=== PATIENT | female | born 1950 | race Caucasian/White ===

== ENCOUNTER → 2024-10-14 10:49 | Outpatient (REF) | payer OTHER, SELFPAY ==
[2024-10-14 12:06] LABS: INR 3.11; PT 32.4 Sec (11.4-14.6)
== END ==
LOC: REG 10:49
PROVIDERS: ATTENDING PHYSICIAN Internal Medicine Cardiovascular Disease
DX: I48.21 Permanent atrial fibrillation (principal)
CPT/HCPCS: 36415; 85610

== ENCOUNTER → 2024-10-21 08:36 | Outpatient (REF) | payer OTHER, SELFPAY ==
[2024-10-21 09:26] LABS: INR 3.07
== END ==
LOC: REG 08:36
PROVIDERS: ATTENDING PHYSICIAN Internal Medicine Cardiovascular Disease; FAMILY PHYSICIAN Student in an Organized Health Care Education/Training Program
DX: I48.21 Permanent atrial fibrillation (principal)
CPT/HCPCS: 36415; 85610

== ENCOUNTER → 2024-10-25 08:13 | Outpatient (REF) | payer OTHER, SELFPAY | LOC: HWRCS 08:13 | PROVIDERS: ATTENDING PHYSICIAN Internal Medicine Cardiovascular Disease; FAMILY PHYSICIAN Student in an Organized Health Care Education/Training Program | DX: I48.21 Permanent atrial fibrillation (principal); Z98.890 Other specified postprocedural states; I50.22 Chronic systolic (congestive) heart failure | CPT/HCPCS: 93306 ==

== ENCOUNTER → 2024-10-28 08:46 | Outpatient (REF) | payer OTHER, SELFPAY ==
[2024-10-28 09:58] LABS: INR 3.74; PT 37.2 Sec (11.4-14.6)
[2024-10-28 10:42] LABS: Blood Urea Nitrogen 44 mg/dl (7-17); Calcium 9.6 mg/dl (8.4-10.2); Carbon Dioxide 30 mmol/L (22-30); Chloride 100 mmol/L (98-107); Glucose 91 mg/dl (70-99); Potassium 4.5 mmol/L (3.5-5.1); Sodium 139 mmol/L (135-145); eGFR 39.48
== END ==
LOC: REG 08:46
PROVIDERS: ATTENDING PHYSICIAN Internal Medicine Cardiovascular Disease; FAMILY PHYSICIAN Student in an Organized Health Care Education/Training Program
DX: I50.32 Chronic diastolic (congestive) heart failure (principal); I48.21 Permanent atrial fibrillation
CPT/HCPCS: 36415; 80048; 85610

== ENCOUNTER → 2024-11-04 08:05 | Outpatient (REF) | payer OTHER, SELFPAY ==
[2024-11-04 09:33] LABS: INR 2.98; PT 31.3 Sec (11.4-14.6)
== END ==
LOC: REG 08:05
PROVIDERS: ATTENDING PHYSICIAN Internal Medicine Cardiovascular Disease; FAMILY PHYSICIAN Student in an Organized Health Care Education/Training Program
DX: I48.21 Permanent atrial fibrillation (principal); Z79.01 Long term (current) use of anticoagulants
CPT/HCPCS: 36415; 85610

== ENCOUNTER → 2024-11-11 08:41 | Outpatient (REF) | payer OTHER, SELFPAY ==
[2024-11-11 09:30] LABS: Blood Urea Nitrogen 61 mg/dl (7-17); Calcium 9.7 mg/dl (8.4-10.2); Carbon Dioxide 31 mmol/L (22-30); Chloride 102 mmol/L (98-107); Glucose 96 mg/dl (70-99); Potassium 4.6 mmol/L (3.5-5.1); Sodium 141 mmol/L (135-145); eGFR 31.27
[2024-11-11 09:39] LABS: INR 1.98; PT 22.9 Sec (11.4-14.6)
== END ==
LOC: REG 08:41
PROVIDERS: ATTENDING PHYSICIAN Internal Medicine Cardiovascular Disease; FAMILY PHYSICIAN Student in an Organized Health Care Education/Training Program
DX: I50.32 Chronic diastolic (congestive) heart failure (principal); I48.21 Permanent atrial fibrillation; Z79.01 Long term (current) use of anticoagulants
CPT/HCPCS: 36415; 80048; 85610

== ENCOUNTER → 2024-11-19 08:24 | Outpatient (REF) | payer OTHER, SELFPAY ==
[2024-11-19 09:25] LABS: INR 2.25
== END ==
LOC: REG 08:24
PROVIDERS: ATTENDING PHYSICIAN Internal Medicine Cardiovascular Disease
DX: I48.21 Permanent atrial fibrillation (principal)
CPT/HCPCS: 36415; 85610

== ENCOUNTER → 2024-11-26 08:34 | Outpatient (REF) | payer OTHER, SELFPAY ==
[2024-11-26 09:28] LABS: INR 1.99; PT 22.7 Sec (11.4-14.6)
== END ==
LOC: REG 08:34
PROVIDERS: ATTENDING PHYSICIAN Internal Medicine Cardiovascular Disease
DX: I48.21 Permanent atrial fibrillation (principal)
CPT/HCPCS: 36415; 85610

== ENCOUNTER → 2024-12-03 10:38 | Outpatient (REF) | payer OTHER, SELFPAY ==
[2024-12-03 12:07] LABS: PT 22.9 Sec (11.4-14.6)
== END ==
LOC: REG 10:38
PROVIDERS: ATTENDING PHYSICIAN Internal Medicine Cardiovascular Disease
DX: I48.21 Permanent atrial fibrillation (principal); I50.32 Chronic diastolic (congestive) heart failure
CPT/HCPCS: 36415; 85610

== ENCOUNTER → 2024-12-30 09:56 | Outpatient (REF) | payer OTHER, SELFPAY ==
[2024-12-30 11:11] LABS: INR 1.84; PT 21.4 Sec (11.4-14.6)
[2024-12-30 11:22] LABS: NT-proBNP 1040 pg/ml
[2024-12-30 12:00] LABS: Blood Urea Nitrogen 35 mg/dl (7-17); Calcium 9.5 mg/dl (8.4-10.2); Carbon Dioxide 31 mmol/L (22-30); Chloride 105 mmol/L (98-107); Glucose 92 mg/dl (70-99); Potassium 4.3 mmol/L (3.5-5.1); Sodium 144 mmol/L (135-145); eGFR 39.48
== END ==
LOC: REG 09:56
PROVIDERS: ATTENDING PHYSICIAN Internal Medicine Cardiovascular Disease
DX: I50.32 Chronic diastolic (congestive) heart failure (principal)
CPT/HCPCS: 36415; 80048; 83880; 85610

== ENCOUNTER → 2025-01-07 09:40 | Outpatient (REF) | payer OTHER, SELFPAY ==
[2025-01-07 10:24] LABS: % Basophils 1.4 % (0-2); % Eosinophils 5.4 % (0-6); % Immature Granulocytes 0.2 % (0-0.5); % Lymphocytes 13.6 % (20.5-51.1); % Monocytes 11.1 % (1.7-9.3); % Neutrophils 68.3 % (42.2-75.2); Absolute Basophils 0.1 10^3/uL (0-0.2); Absolute Eosinophils 0.3 10^3/uL (0-0.7); Absolute Lymphocytes 0.9 10^3/uL (1.2-3.4); Absolute Monocytes 0.7 10^3/uL (0.1-0.6); Absolute Neutrophils 4.3 10^3/uL (1.4-6.5); Hematocrit 37.3 % (37.0-47.0); Hemoglobin 12.1 g/dL (12.0-16.0); Mean Corp Hgb Conc. 32.4 g/dL (33.0-37.0); Mean Corpuscular Hgb 30.1 pg (27.0-31.0); Mean Corpuscular Volume 92.8 fL (81.0-99.0); Mean Platelet Volume 9.6 fL (7.4-10.4); Nucleated Red Blood Cells % 0 %; Platelet Count 214 10^3/uL (130-400); Red Blood Cell Count 4.02 10^6/uL (4.20-5.40); Red Cell Dist. Width 14.2 % (11.5-14.5); White Blood Cell Count 6.3 10^3/uL (4.8-10.8)
[2025-01-07 10:35] LABS: INR 2.79; PT 29.4 Sec (11.4-14.6)
== END ==
LOC: REG 09:40
PROVIDERS: ATTENDING PHYSICIAN Internal Medicine Cardiovascular Disease; FAMILY PHYSICIAN Student in an Organized Health Care Education/Training Program
DX: I49.5 Sick sinus syndrome (principal); I48.21 Permanent atrial fibrillation
CPT/HCPCS: 36415; 85025; 85610

== ENCOUNTER 2025-01-14 07:55 | Day surgery (SDC) | payer OTHER, SELFPAY ==
[2025-01-14] VITALS (10 sets, daily range): BP systolic 83–138; BP diastolic 43–86; BMI 33.7
[2025-01-14 08:56] LABS: INR 2.17; PT 24.3 Sec (11.4-14.6)
--- NOTE | 2025-01-14 16:04 | ITS.CL.PACE ---
[facility] - Pacemaker Implant
Pacemaker Implant
Procedure Report:
Date of Procedure: January 14, 2025.
Procedures: Dual chamber pacemaker generator change. Pacemaker pulse generator explantation and pacemaker pulse generator implantation. Her pacemaker was placed at [facility].
Indication: Pacemaker at [facility] from natural battery depletion. 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
Performing physician: Cyrus Cloud MD, [facility].
Implant: Pacemaker Pulse Generator: Medtronic; Model# W1DR01; Serial# [id number].
Explanted Pacemaker Pulse Generator (Implanted 01/15/2017): Medtronic; Model# [id number]; Serial# [id number].
Retained Leads (Implanted 01/15/2017):
RA: Medtronic: Model# 5076; Serial# [id number].
RV: Medtronic; Model# [id number]; Serial# [id number].
Technique: A time out was performed. The procedure site was identified. The patient was anesthetized by the anesthesia service. Preoperative cefazolin was administered prior to skin incision. The patient was prepped and draped in the usual fashion.
Local anesthetic was applied to the left prepectoral subcutaneous tissue. A 3 inch incision was made over the pulse generator. The capsule was entered with Bovie cautery. The old pacemaker pulse generator was explanted. No Bovie cautery was applied
to the lead system. The leads were appropriately attached to the new device. The pocket was irrigated with antibiotic solution. Hemostasis was excellent. The device and leads were placed in the pocket. A Medtronic, TYRX Absorbable Antibacterial
Envelope was placed in the pocket, (Ref [id number]; Lot [id number]). The incision was closed in three layers with absorbable suture. Steri-strips and a silver impregnated dressing were applied. The estimated blood loss was 5 mL. There were no
complications. No fluoroscopy.
Lead Analysis:
RA lead: AT/AFl: 1.4 mV with occasional noise seen; Threshold:n/a; Impedance: >3000 ohms (chronic).
RV lead: R: 4.5 mV; Threshold: 1.25 V @ 0.4 ms; Impedance: 380 ohms.
Final Programming: VVIR 60 - 130 bpm.
Conclusion: Uncomplicated Medtronic pacemaker change.
Recommendation: Routine post pacemaker care.
cc: Latonia Frausto MD.
== END 2025-01-14 14:44 | disposition home or self-care (01) ==
LOC: CATH 07:55
PROVIDERS: Nurse Practitioner Adult Health; ATTENDING PHYSICIAN Internal Medicine Cardiovascular Disease; FAMILY PHYSICIAN Student in an Organized Health Care Education/Training Program
DX: Z45.010 Encounter for checking and testing of cardiac pacemaker pulse generator [battery] (principal); I49.5 Sick sinus syndrome; I44.1 Atrioventricular block, second degree; I48.92 Unspecified atrial flutter; I50.22 Chronic systolic (congestive) heart failure; Z79.899 Other long term (current) drug therapy; Z79.890 Hormone replacement therapy; Z79.01 Long term (current) use of anticoagulants
CPT/HCPCS: 33228; 85610; C1785

== ENCOUNTER → 2025-03-07 10:40 | Outpatient (REF) | payer OTHER, SELFPAY ==
[2025-03-07 11:30] LABS: INR 2.81; PT 29.6 Sec (11.4-14.6)
[2025-03-07 11:55] LABS: Blood Urea Nitrogen 30 mg/dl (7-17); Calcium 9.4 mg/dl (8.4-10.2); Carbon Dioxide 29 mmol/L (22-30); Chloride 104 mmol/L (98-107); Glucose 93 mg/dl (70-99); Potassium 3.9 mmol/L (3.5-5.1); Sodium 142 mmol/L (135-145); eGFR 47.50
== END ==
LOC: RAD 10:40
PROVIDERS: ATTENDING PHYSICIAN Internal Medicine Cardiovascular Disease; FAMILY PHYSICIAN Student in an Organized Health Care Education/Training Program
DX: I50.22 Chronic systolic (congestive) heart failure (principal); I48.21 Permanent atrial fibrillation
CPT/HCPCS: 36415; 80048; 85610

== ENCOUNTER → 2025-04-22 10:58 | Outpatient (REF) | payer OTHER, SELFPAY ==
[2025-04-22 11:45] LABS: INR 3.00; PT 31.0 Sec (11.4-14.6)
== END ==
LOC: REG 10:58
PROVIDERS: ATTENDING PHYSICIAN Internal Medicine Cardiovascular Disease; FAMILY PHYSICIAN Student in an Organized Health Care Education/Training Program
DX: I48.21 Permanent atrial fibrillation (principal)
CPT/HCPCS: 36415; 85610

== ENCOUNTER → 2025-05-14 08:27 | Outpatient (REF) | payer OTHER, SELFPAY ==
[2025-05-14 10:04] LABS: INR 3.25; PT 32.9 Sec (11.4-14.6)
== END ==
LOC: REG 08:27
PROVIDERS: ATTENDING PHYSICIAN Internal Medicine Cardiovascular Disease; FAMILY PHYSICIAN Student in an Organized Health Care Education/Training Program
DX: I48.21 Permanent atrial fibrillation (principal)
CPT/HCPCS: 36415; 85610

== ENCOUNTER → 2025-05-23 09:14 | Outpatient (REF) | payer OTHER, SELFPAY ==
[2025-05-23 11:16] LABS: INR 3.61; PT 35.7 Sec (11.4-14.6)
== END ==
LOC: REG 09:14
PROVIDERS: ATTENDING PHYSICIAN Internal Medicine Cardiovascular Disease; FAMILY PHYSICIAN Student in an Organized Health Care Education/Training Program
DX: I48.21 Permanent atrial fibrillation (principal)
CPT/HCPCS: 36415; 85610

== ENCOUNTER → 2025-05-30 10:30 | Outpatient (REF) | payer OTHER, SELFPAY ==
[2025-05-30 12:01] LABS: INR 2.62; PT 28.0 Sec (11.4-14.6)
== END ==
LOC: REG 10:30
PROVIDERS: ATTENDING PHYSICIAN Internal Medicine Cardiovascular Disease; FAMILY PHYSICIAN Student in an Organized Health Care Education/Training Program
DX: I48.21 Permanent atrial fibrillation (principal)
CPT/HCPCS: 36415; 85610

== ENCOUNTER → 2025-06-06 09:20 | Outpatient (REF) | payer OTHER, SELFPAY ==
[2025-06-06 10:55] LABS: INR 1.79; PT 21.0 Sec (11.4-14.6)
== END ==
LOC: REG 09:20
PROVIDERS: ATTENDING PHYSICIAN Internal Medicine Cardiovascular Disease; FAMILY PHYSICIAN Student in an Organized Health Care Education/Training Program
DX: I48.21 Permanent atrial fibrillation (principal)
CPT/HCPCS: 36415; 85610

== ENCOUNTER → 2025-06-14 09:53 | Outpatient (REF) | payer OTHER, SELFPAY ==
[2025-06-14 11:04] LABS: INR 2.39; PT 26.1 Sec (11.4-14.6)
== END ==
LOC: REG 09:53
PROVIDERS: ATTENDING PHYSICIAN Internal Medicine Cardiovascular Disease; FAMILY PHYSICIAN Student in an Organized Health Care Education/Training Program
DX: I48.21 Permanent atrial fibrillation (principal)
CPT/HCPCS: 36415; 85610

== ENCOUNTER → 2025-06-21 10:14 | Outpatient (REF) | payer OTHER, SELFPAY ==
[2025-06-21 11:06] LABS: INR 2.35; PT 25.8 Sec (11.4-14.6)
== END ==
LOC: REG 10:14
PROVIDERS: ATTENDING PHYSICIAN Internal Medicine Cardiovascular Disease; FAMILY PHYSICIAN Student in an Organized Health Care Education/Training Program
DX: I48.21 Permanent atrial fibrillation (principal)
CPT/HCPCS: 36415; 85610

== ENCOUNTER → 2025-06-28 09:46 | Outpatient (REF) | payer OTHER, SELFPAY ==
[2025-06-28 11:44] LABS: INR 2.16; PT 24.2 Sec (11.4-14.6)
== END ==
LOC: REG 09:46
PROVIDERS: ATTENDING PHYSICIAN Internal Medicine Cardiovascular Disease; FAMILY PHYSICIAN Student in an Organized Health Care Education/Training Program
DX: I48.21 Permanent atrial fibrillation (principal)
CPT/HCPCS: 36415; 85610

== ENCOUNTER → 2025-07-05 09:21 | Outpatient (REF) | payer OTHER, SELFPAY ==
[2025-07-05 10:23] LABS: INR 2.42; PT 26.4 Sec (11.4-14.6)
== END ==
LOC: REG 09:21
PROVIDERS: ATTENDING PHYSICIAN Internal Medicine Cardiovascular Disease
DX: I48.21 Permanent atrial fibrillation (principal)
CPT/HCPCS: 36415; 85610

== ENCOUNTER → 2025-08-02 10:19 | Outpatient (REF) | payer OTHER, SELFPAY ==
[2025-08-02 11:34] LABS: INR 1.94; PT 22.3 Sec (11.4-14.6)
== END ==
LOC: REG 10:19
PROVIDERS: ATTENDING PHYSICIAN Internal Medicine Cardiovascular Disease
DX: I48.21 Permanent atrial fibrillation (principal)
CPT/HCPCS: 36415; 85610

== ENCOUNTER → 2025-08-09 08:35 | Outpatient (REF) | payer OTHER, SELFPAY ==
[2025-08-09 09:24] LABS: INR 1.86; PT 21.6 Sec (11.4-14.6)
== END ==
LOC: REG 08:35
PROVIDERS: ATTENDING PHYSICIAN Internal Medicine Cardiovascular Disease
DX: I48.21 Permanent atrial fibrillation (principal)
CPT/HCPCS: 36415; 85610